=== PATIENT | female | born 1955 | race Caucasian/White ===

== ENCOUNTER 2022-08-31 12:58 | Emergency (ER) | payer MEDICARE, OTHER, SELFPAY ==
--- NOTE | ~2022-08-31 | CT_ITS ---
EXAMINATION: CT abdomen pelvis wo con DATE: 08/31/2022 15:20 INDICATION: Urinary tract infection. Hematuria. Back pain. Low abdominal pain. TECHNIQUE: Computed tomography (CT) of the abdomen and pelvis was performed without intravenous contr ast. Automated exposure control and iterative reconstruction technique were employed. The dose-length product was 436.22 mGy-cm. COMPARISON: None. FINDINGS: The visualized portions of the lung bases demonstrate mild atelectasis. No pleural effusion . The heart size is normal. There are coronary artery calcifications. No pericardial effusion. There is a small sliding hiatal hernia. The liver and spleen are normal. There are changes of cholecystecto my. The pancreas, adrenal glands, and right kidney are normal. There are 3 stones in left kidney tyson uring up to 8 mm. There is diverticulosis of the colon without evidence of diverticulitis. There are no dilated loops of bowel. The appendix is normal. There is an umbilical hernia containing fat. There are no pathologically enlarged lymph nodes. There is no free intraperitoneal fluid. There is a benig n bone island in left ischium. There is severe osteoarthritis of the hips. There is severe lower lumb ar spondylosis. IMPRESSION: 1. Small sliding hiatal hernia. 2. Nonobstructive left kidney stones. 3. Umbilical hernia containing fat. Reviewed, dictated and finalized at location A.
[2022-08-31 13:40] VITALS: BP 113/74; PULSE 93; RESP 14; TEMP 36; O2SAT 100
[2022-08-31 14:11] LABS: Appearance Urine Turbid (Clear); Bacteria Urine 3+ /hpf; Bilirubin Urine 1+ (Negative); Blood Urine 3+ (Negative); Color Urine Orange (Yellow); Glucose Urine UA Negative (Negative); Ketones Urine Trace mg/dL (Negative); Leukocyte Esterase Ur 3+ LEU/UL (Negative); Need Manual Microscopic Reviewed; Nitrate Urine Negative (Negative); Non Pathogenic Casts 0-2; Protein Urine 3+ mg/dL (Negative); RBC Urine >100 /hpf (0-2); Specific Grav Ur 1.018 (1.001-1.035); Squamous Epithelial Cell Urine Few /hpf (Few); WBC Urine >100 /hpf
[2022-08-31 14:22] LABS: Add Urine Microscopic? YES
[2022-08-31 15:04] LABS: Basophils Absolute Auto 0.1 K/mm3 (0.0-0.1); Basophils Percent Auto 0.5 % (0.2-1.2); Eosinophils Absolute Auto 0.1 K/mm3 (0-0.3); Eosinophils Percent Auto 0.5 % (0-4.4); Hematocrit 43.1 % (37.0-47.0); Hemoglobin 14.8 g/dL (12.0-15.0); Immature Granulocyte Absolute 0.04 K/mm3 (0.00-0.031); Immature Granulocyte Percent A 0.3 % (0-0.5); Lymphocytes Absolute Auto 3.83 K/mm3 (0.9-3.2); Lymphocytes Percent Auto 29.3 % (18.3-44.2); Mean Corpuscular HGB Conc 34.3 g/dl (32-36); Mean Corpuscular Hemoglobin 33.4 pg (26-34); Mean Corpuscular Volume 97.3 fl (80-100); Mean Platelet Volume 8.9 fl (7.4-10.4); Monocytes Absolute Auto 1.2 K/mm3 (0.1-0.6); Monocytes Percent Auto 8.9 % (2.6-8.5); Neutrophils Absolute Auto 7.9 K/mm3 (1.3-6.7); Neutrophils Percent Auto 60.5 % (45.5-73.1); Platelet Count Result 232 k/mm3 (150-375); Red Blood Count 4.43 M/mm3 (4.2-5.4); Red Cell Distribution Width 12.5 % (11.5-14.5); White Blood Count 13.1 K/mm3 (4.5-10.0)
[2022-08-31 15:14] LABS: Alanine Aminotransferase 23 U/L (6-35); Albumin Level 4.3 g/dL (3.5-5.1); Alkaline Phosphatase 154 U/L (38-126); Anion Gap 6 mmol/L (8-16); Aspartate Amino Transferase 31 U/L (14-36); Bilirubin,Total 1.1 mg/dL (0.2-1.3); Blood Urea Nitrogen 6 mg/dL (7-17); Calcium 9.2 mg/dL (8.4-10.2); Carbon Dioxide 26 mmol/L (22-30); Chloride 104 mmol/L (98-107); Estimated CRCL calculation 88 ml/min; Estimated Glomerular Filt Rate > 60; Glucose 90 mg/dL (65-110); Potassium 4.5 mmol/L (3.4-5.0); Sodium 136 mmol/L (137-145)
[2022-08-31] MEDS: SODIUM CHLORIDE 0.9% IV 1,000 ML 999 ML IV CONT (15:23)
--- NOTE | 2022-08-31 15:58 | ED.FEMALEGU ---
HPI - Female Genitourinary General Chief complaint: Urogenital-Female Stated complaint: urinary urgency Time Seen by Provider: 08/31/22 14:31 Source: patient Mode of arrival: ambulatory Limitations: no limitations History of Present Illness HPI Narrative: Patient is a 67-year-old female who presents the ED with report of urinary symptoms. Patient reports a history of long COVID and states she no longer feels pain. She states she woke up last night in the middle of the night and had some discomfort in her lower abdomen. She was able to fall back asleep. This morning, she reported having severe pain with urination, hematuria, urinary frequency and urgency. She is concerned she may have a UTI. She does note previous history of kidney stones as well. She mentioned having an episode of discomfort across her lower back at lunch, but no further pain reported. She has been nauseous for the last couple of days, denies vomiting. Denies fevers. Denies diarrhea or constipation. Denies rectal bleeding, melena. Related Data Home Medications Medication Instructions Recorded Confirmed aspirin 81 mg tablet,delayed 81 mg 08/31/22 release atorvastatin 80 mg tablet 80 mg DAILY 08/31/22 08/31/22 carvedilol phosphate 10 mg 10 mg PO DAILY 08/31/22 capsule,[id number] multiphase coenzyme Q10 100 mg capsule 200 mg PO DAILY 08/31/22 (CoQ-10) ergocalciferol (vitamin D2) 1,000 1,000 unit PO DAILY 08/31/22 unit capsule magnesium 200 mg tablet 400 mg PO DAILY 08/31/22 niacinamide 500 mg tablet,extended 1,500 mg PO DAILY 08/31/22 release omega-3 acid ethyl esters 1 gram 2 cap PO DAILY 08/31/22 capsule (Lovaza) Allergies Allergy/AdvReac Type Severity Reaction Status Date / Time terbutaline Allergy Intermediate Vomiting Verified 08/31/22 14:27 Review of Systems Review of Systems: CONSTITUTIONAL: Denies fever, chills, or sweats. CARDIOVASCULAR: Denies chest pain. RESPIRATORY: Denies dyspnea. GASTROINTESTINAL: See HPI. GENITOURINARY: See HPI. SKIN: Denies rash or itching. MUSCULOSKELETAL: See HPI. All systems reviewed & are unremarkable except as noted in HPI and below PMFSH Past Medical History Medical History (Updated 08/31/22 @ 16:05 by Suha Bella PA-C) HLD (hyperlipidemia) HTN (hypertension) Kidney stones Long COVID Surgical History Surgical History (Updated 08/31/22 @ 16:01 by Suha Bella PA-C) No pertinent past surgical history Social History Social History (Updated 08/31/22 @ 16:01 by Suha Bella PA-C) Smoking status: Never smoker Exam Narrative: GENERAL: Well appearing, well-nourished, non-toxic, in no acute distress. HEAD: Normocephalic, atraumatic. NECK: Supple. No adenopathy, no masses. RESPIRATORY: Airway patent, respirations nonlabored. Clear to auscultation bilaterally, no rales, rhonchi, wheezing. CARDIOVASCULAR: Regular rate and rhythm without murmurs, rubs, or gallops. Radial pulses 2+ and equal bilaterally. ABDOMINAL: Soft, no appreciable tenderness throughout abdomen, nondistended, no hepatosplenomegaly. Normoactive BS. No CVA tenderness to percussion. MUSCULOSKELETAL: Moves all extremities. Strength/ROM intact without gross deformities. SKIN: Warm, dry, normal color. No rashes. NEURO: A&O X3. Speech clear. Cranial nerves II-XII grossly intact. Steady gait. No ataxic movements. PSYCHIATRIC: Appropriate mood and affect. Normal interaction. Course Vital Signs Vital signs: Vital Signs Temperature 96.8 F L 08/31/22 13:40 Pulse Rate 93 08/31/22 13:40 Respiratory Rate 14 08/31/22 13:40 Blood Pressure 113/74 08/31/22 13:40 Pulse Oximetry 100 08/31/22 13:40 Oxygen Delivery Room Air 08/31/22 13:40 Temperature 96.8 F L 08/31/22 13:40 Pulse Rate 93 08/31/22 13:40 Respiratory Rate 14 08/31/22 13:40 Blood Pressure 113/74 08/31/22 13:40 Pulse Oximetry 100 08/31/22 13:40 Oxygen Delivery Room Air 0
== END 2022-08-31 16:22 | disposition home or self-care (01) ==
PROVIDERS: Emergency Medicine; Emergency Provider Physician Assistant
DX: N30.01 Acute cystitis with hematuria (principal); N20.0 Calculus of kidney; I10 Essential (primary) hypertension; E78.5 Hyperlipidemia, unspecified; U09.9 Post COVID-19 condition, unspecified; Z87.442 Personal history of urinary calculi; Z79.82 Long term (current) use of aspirin; K44.9 Diaphragmatic hernia without obstruction or gangrene
CPT/HCPCS: 36415; 74176; 80053; 81001; 85025; 87086; 87088; 96365; 99284; J0696; J7030